=== PATIENT | male | born 1940 | race Caucasian/White ===

== ENCOUNTER 2017-03-11 12:42 | Day surgery (SDC) | payer MEDICARE, OTHER ==
--- NOTE | ~2017-03-11 | OP ---
Record Of Operation [facility] [address] [place]. [address] NAME: CHRISTINA ALEGRE : 38 STATUS : [facility]#: [id number] AGE: 76 ADM/REG DATE : 03/11/17 MR#: [id number] REPORT SERV DATE: 03/11/17 DICTATED BY: PATRICIO MERCADO DATE: 03/11/17 REPORT STATUS : Draft TRANSCRIBED BY: MODL DATE: 03/11/17 DATE OF PROCEDURE: 03/11/2017 PREOPERATIVE DIAGNOSIS: History of transitional cell cancer of the bladder. POSTOPERATIVE DIAGNOSIS: History of transitional cell cancer of the bladder. OPERATIVE PROCEDURE: Cysto, TUR, biopsies, bladder. ANESTHESIA: General inhalation. SURGEON: Patricio Mercado M.D. SPECIMENS: Bladder biopsies x2. ESTIMATED BLOOD LOSS: Less than 5 mL. COMPLICATIONS: None. DRAINS: One #18 [place] Cook catheter 10 mL balloon, immediate postop satisfactory. DESCRIPTION OF PROCEDURE: The patient was brought into cysto suite, given inhalational anesthetic, and placed in lithotomy position. Perineum and genitalia were prepped and draped in sterile fashion. Video cystourethroscopy was performed using #22 cystoscope Foroblique lens. Upon entering the bladder, there was noted to be scarring overlying a large portion of the left hemitrigone. The left ureteral orifice could be identified and was watched during the biopsies below to avoid involving any of the resection. There was no obvious tumor noted. Remainder of the bladder was unremarkable. A 0.35 Sensor wire was then passed into the bladder through the cystoscope. The cystoscope was removed. Urethra dilated with hollow Su sounds to 28, followed by insertion of a #26 continuous flow resectoscope sheath and obturator. The obturator was removed and placed with a working element, Foroblique lens, and a cutting loop. Biopsies were obtained from the sales representative girls' apparel areas of previous tumor involvement. There did not appear to be any perforation of the bladder wall. There did not appear to be any involvement of the left ureteral orifice. At this point, the specimens were removed and a #18 [place] Cook was placed in the bladder balloon, inflated, hooked to drainage. The patient was awakened and sent to recovery in satisfactory condition. /DON Patricio Mercado M.D. / [id number] Record Of Operation [facility] [place] [address] [address] [facility] [place] [address] NAME: CHRISTINA ALEGRE : 38 STATUS : [facility]#: [id number] AGE: 76 ADM/REG DATE : 03/11/17 MR#: [id number] REPORT SERV DATE: 03/11/17 DICTATED BY: PATRICIO MERCADO DATE: 03/11/17 REPORT STATUS : Draft TRANSCRIBED BY: DON DATE: 03/11/17 CC: Patricio Mercado M.D.
[~2017-03-11 12:42] MED LIST: [UNRECOGNIZED DRUG - REMARK]
[2017-03-11] MEDS ORDERED: X25 PO (13:02)
[2017-03-11] MEDS ORDERED: CYANO1000T PO (13:03)
[2017-03-11] MEDS ORDERED: HYDROCHLOROT50 MG PO (13:04)
[2017-03-11] MEDS ORDERED: LOP100 PO (13:05)
[2017-03-11] MEDS ORDERED: ZOCOR40 PO (13:05)
[2017-03-11] MEDS ORDERED: SPIRO25 PO (13:06)
[2017-03-11] MEDS ORDERED: LEVITRA20 MG PO (13:06)
[2017-03-11 13:16] LABS: BASOPHILS 0.4 %; BASOPHILS ABSOLUTE 0.02 10/3/uL (0.0-0.16); HEMATOCRIT 43.2 % (40.0-51.0); HEMOGLOBIN 14.7 g/dL (13.6-17.8); IMMATURE GRANULOCYTES 0.2 %; IMMATURE GRANULOCYTES ABSOLUTE 0.01 10/3/uL (0.0-0.11); LYMPHOCYTES 37.4 %; LYMPHOCYTES ABSOLUTE 1.91 10/3/uL (0.67-4.30); MEAN CORPUSCULAR HEMOGLOB 30.7 pg (26.0-34.0); MEAN CORPUSCULAR VOLUME 90.2 fL (80-100); MONOCYTES 9.8 %; NEUTROPHILS 50.2 %; NEUTROPHILS ABSOLUTE 2.57 10/3/uL (2.02-8.40); PLATELET COUNT 214 10/3/uL (150-400); RBC DISTRIBUTION WIDTH 13.7 % (12.0-16.0); RED CELL COUNT 4.79 10/6/uL (4.7-6.1); WHITE BLOOD CELLS 5.1 10/3/uL (4.5-10.5)
[2017-03-11 13:17] LABS: MANUAL DIFF NO %
[2017-03-11 13:32] LABS: A/G RATIO 1.1 (0.7-1.9); ALBUMIN 3.9 G/DL (3.5-5.0); ALKALINE PHOSPHATASE 69 U/L (45-117); BUN (BLOOD UREA NITROGEN) 20 MG/DL (6-23); CALCIUM, SERUM 9.2 MG/DL (8.5-10.4); CHLORIDE, SERUM 101 MMOL/L (96-112); CO2 (CARBON DIOXIDE) 30 MMOL/L (24-34); CREATININE 1.16 MG/DL (0.70-1.30); GFR AFRICAN AMERICAN 70 ML/MIN (>=60); GFR NON AFRICAN AMERICAN 60 ML/MIN (>=60); GLOBULIN 3.5 G/DL (2.5-4.1); GLUCOSE, SERUM 94 MG/DL (60-99); POTASSIUM, SERUM 4.6 MMOL/L (3.5-5.3); SGOT(AST) 23 U/L (5-40); SGPT(ALT) 23 U/L (5-65); SODIUM, SERUM 136 MMOL/L (135-148); TOTAL BILIRUBIN 0.7 MG/DL (0-1.2); TOTAL PROTEIN 7.4 G/DL (6.0-8.5)
== END 2017-03-11 19:00 | disposition home or self-care (01) ==
LOC: SDC 12:42
PROVIDERS: Urology
PROC: 0TBB8ZX Excision of Bladder, Via Natural or Artificial Opening Endoscopic, Diagnostic (ICD-10-PCS; principal; 2017-03-11 13:45)
DX: N30.20 Other chronic cystitis without hematuria (principal); N32.89 Other specified disorders of bladder; I10 Essential (primary) hypertension; Z85.51 Personal history of malignant neoplasm of bladder; Z91.09 Other allergy status, other than to drugs and biological substances; Z91.018 Allergy to other foods; Z91.030 Bee allergy status; Z79.899 Other long term (current) drug therapy; Z98.890 Other specified postprocedural states
CPT/HCPCS: 80053; 85025; 88305; 93005; J2405; J2710; J3010